=== PATIENT | female | born 2000 | race Caucasian/White ===

== ENCOUNTER 2022-06-14 14:52 | Emergency (ER) | payer MEDICAID ==
[2022-06-14] MEDS ORDERED: Sodium Chloride 0.9% 1,000 ML IV ONE (17:01)
[2022-06-14] MEDS ORDERED: Ondansetron 4 MG/2 ML SDV IVPUSH ONE (17:04)
[2022-06-14 17:50] LABS: CARBON DIOXIDE,CO2 23.8 mmol/L (21.0-32.0); POTASSIUM,K 3.4 mmol/L (3.5-5.1)
[2022-06-14] MEDS ORDERED: Amoxicillin/Clavulanate K 875-125 MG Tab PO ONE (18:49)
== END 2022-06-14 19:16 | disposition home or self-care (01) ==
LOC: MW.ED 14:52
DX: O21.9 Vomiting of pregnancy, unspecified (principal); O23.41 Unspecified infection of urinary tract in pregnancy, first trimester; Z3A.00 Weeks of gestation of pregnancy not specified; Z91.018 Allergy to other foods; Z79.899 Other long term (current) drug therapy
CPT/HCPCS: 36415; 80053; 81001; 85025; 96361; 96374; 99284; A9270; J2405; J7030

== ENCOUNTER 2022-12-26 00:23 | Inpatient (IN) | payer MEDICAID ==
[2022-12-26] MEDS ORDERED: Terbutaline 1 MG/ML SDV SUBCUT PRN (00:24)
[2022-12-26] MEDS ORDERED: Sodium Chloride 0.9% 20 ML SDV IV PRN (00:29)
[2022-12-26] MEDS ORDERED: Misoprostol 200 MCG Tab PO PRN (00:29)
[2022-12-26] MEDS ORDERED: Sodium Chloride 0.9% 10 ML Syringe FLUSH PRN (00:29)
[2022-12-26] MEDS ORDERED: Lidocaine 1% 50 ML MDV INJECT PRN (00:29)
[2022-12-26] MEDS ORDERED: Tranexamic Acid 1,000 MG in Sodium Chloride 0.9% 100 ML IV PRN (00:29)
[2022-12-26] MEDS ORDERED: Methylergonovine 0.2 MG/1 ML Amp IM PRN (00:29)
[2022-12-26] MEDS ORDERED: Water For Irrigation,Sterile 1,000 ML Container IRR PRN (00:29)
[2022-12-26] MEDS ORDERED: Carboprost Tromethamine 250 MCG/1 mL Vial IM PRN (00:29)
[2022-12-26] MEDS ORDERED: Sodium Chloride 0.9% 2.5 ML Syringe FLUSH PRN (00:29)
[2022-12-26] MEDS ORDERED: Oxytocin/0.9 % Sodium Chloride 30 UNIT/500 ML BAG IV SCH ×2 (00:30)
[2022-12-26] MEDS ORDERED: Misoprostol 25 MCG (1/4 of 100 MCG) Tab VAG PRN ×2 (01:00→05:00)
[2022-12-26] MEDS ORDERED: Misoprostol 25 MCG (1/4 of 100 MCG) Tab PO PRN ×2 (01:00→05:00)
[2022-12-26 01:21] LABS: HEMATOCRIT 31.7 % (36.0-46.0); HEMOGLOBIN 10.3 g/dL (12.0-16.0); MEAN CORPUSCULAR HGB CONC 32.5 g/dL (31.0-37.0); MEAN CORPUSCULAR VOLUME 83.2 fL (80.0-98.0); PLATELET COUNT,PLT 251 K/uL (150-400); RED BLOOD CELL COUNT 3.81 M/uL (4.30-5.90); WHITE BLOOD CELL COUNT,WBC 12.87 K/uL (4.0-11.0)
[2022-12-26] MEDS: Lactated Ringers 1,000 ML IV SCH ×3 (11:49→17:59)
[2022-12-26] MEDS: Nalbuphine HCl 10 MG/ 1ML Amp IVPUSH PRN ×3 (13:48→16:20)
[2022-12-26] MEDS: Ondansetron 4 MG/2 ML SDV IVPUSH PRN ×2 (13:48→19:14)
[2022-12-26] MEDS ORDERED: Phenylephrine HCl 0.5 MG/5 ML AMP IVPUSH PRN (17:39)
[2022-12-26] MEDS ORDERED: ePHEDrine 50 MG/ML SDV IVPUSH PRN ×2 (17:39)
[2022-12-26] MEDS ORDERED: Ropivacaine HCl/PF 400 MG in Premix Bag 1 BAG EPIDUR SCH (17:45)
[2022-12-26] MEDS ORDERED: Dexmedetomidine 200 MCG/2 ML SDV ONE (17:51)
[2022-12-26] MEDS ORDERED: oxyCODONE 5 MG Tab PO PRN (21:24)
[2022-12-26] MEDS ORDERED: Docusate Sodium 100 MG Cap PO PRN (21:24)
[2022-12-26] MEDS ORDERED: Lanolin 100% Cream 7 GM Tube TOP PRN (21:24)
[2022-12-26] MEDS ORDERED: Ibuprofen 400 MG Tab PO PRN (21:24)
[2022-12-26] MEDS ORDERED: Acetaminophen 500 MG Tab PO PRN (21:24)
[2022-12-26] MEDS ORDERED: Benzocaine/Menthol 20%-0.5% Spray 78 GM Cannister TOP PRN (21:24)
[2022-12-26] MEDS ORDERED: Bisacodyl 10 MG Supp RECTAL PRN (21:24)
[2022-12-26] MEDS ORDERED: Witch Hazel Medicated Pads 40/Jar TOP PRN (21:24)
[2022-12-26] MEDS: Acetaminophen 500 MG Tab PO PRN (23:05)
[2022-12-26] MEDS: Ibuprofen 800 MG Tab PO PRN (23:06)
[2022-12-27] MEDS: Acetaminophen 500 MG Tab PO PRN ×2 (04:35→11:51)
[2022-12-27 06:09] LABS: HEMATOCRIT 25.6 % (36.0-46.0)
[2022-12-27] MEDS: Ibuprofen 800 MG Tab PO PRN (22:20)
[2022-12-28] MEDS: Ibuprofen 800 MG Tab PO PRN (08:13)
== END 2022-12-28 12:28 | disposition home or self-care (01) | DRG 807 ==
LOC: MW.OBCHECK 00:23 → MW.OB 00:24 → OBSVTOIN 21:24 → MW.OB 12-27 01:37
PROVIDERS: ADMIT Obstetrics & Gynecology Obstetrics; ATTEND Obstetrics & Gynecology
PROC: 10E0XZZ Delivery of Products of Conception, External Approach (ICD-10-PCS; principal; 2022-12-27)
PROC: 10907ZC Drainage of Amniotic Fluid, Therapeutic from Products of Conception, Via Natural or Artificial Opening (ICD-10-PCS; 2022-12-27)
PROC: 3E0R3BZ Introduction of Anesthetic Agent into Spinal Canal, Percutaneous Approach (ICD-10-PCS; 2022-12-27)
PROC: 00HU33Z Insertion of Infusion Device into Spinal Canal, Percutaneous Approach (ICD-10-PCS; 2022-12-27)
PROC: 3E033VJ Introduction of Other Hormone into Peripheral Vein, Percutaneous Approach (ICD-10-PCS; 2022-12-27)
DX: O48.0 Post-term pregnancy (principal); Z37.0 Single live birth; Z3A.40 40 weeks gestation of pregnancy; Z91.030 Bee allergy status; Z91.018 Allergy to other foods
CPT/HCPCS: 36415; 51702; 59025; 59409; 82947; 85014; 85018; 85027; 86592; 86850; 86900; 86901; A9270-GY; J2300; J2405; J2590; J3490; J7120

== ENCOUNTER 2023-12-24 19:47 | Emergency (ER) | payer SELFPAY ==
[2023-12-24 20:16] LABS: APPEARANCE,URINE CLEAR; BILIRUBIN,URINE NEGATIVE (NEGATIVE); COLOR,URINE YELLOW; GLUCOSE,URINE NEGATIVE (NEGATIVE); KETONES,URINE NEGATIVE (NEGATIVE); LEUKOCYTE ESTERASE,URINE NEGATIVE (NEGATIVE); NITRITE,URINE NEGATIVE (NEGATIVE); OCCULT BLOOD,URINE NEGATIVE (NEGATIVE); PROTEIN,URINE NEGATIVE (NEGATIVE); UROBILINOGEN,URINE 0.2 EU/dL (<2.0)
[2023-12-24] MEDS: Sodium Chloride 0.9% 1,000 ML IV STA (20:18)
[2023-12-24 20:20] LABS: BASOPHILS ABSOLUTE AUTO 0.04 K/uL (0.00-0.20); BASOPHILS PERCENT AUTO 0.4 % (0.0-1.0); EOSINOPHILS ABSOLUTE AUTO 0.09 K/uL (0.00-0.45); EOSINOPHILS PERCENT AUTO 0.8 % (0.0-6.0); HEMATOCRIT 36.7 % (37.0-47.0); HEMOGLOBIN 12.1 g/dL (12.0-16.0); IMMATURE GRAN ABSOLUTE AUTO 0.03 K/uL (0.00-0.05); IMMATURE GRAN PERCENT AUTO 0.3 % (0.0-0.4); LYMPHOCYTES ABSOLUTE AUTO 2.86 K/uL (1.00-4.80); LYMPHOCYTES PERCENT AUTO 25.8 % (24.0-44.0); MEAN CORPUSCULAR HEMOGLOBIN 28.1 pg (28.0-32.0); MEAN CORPUSCULAR VOLUME 85.2 fL (83.0-99.0); MEAN PLATELET VOLUME 10.2 fL (9.4-12.3); MONOCYTES ABSOLUTE AUTO 0.61 K/uL (0.00-0.80); MONOCYTES PERCENT AUTO 5.5 % (0.0-8.0); NEUTROPHILS ABSOLUTE AUTO 7.47 K/uL (1.80-7.70); NEUTROPHILS PERCENT AUTO 67.2 % (41.0-71.0); PLATELET COUNT,PLT 255 K/uL (150-400); RED BLOOD CELL COUNT 4.31 M/uL (4.10-5.30)
[2023-12-24 20:45] LABS: A/G RATIO 0.8 (0.9-1.6); ALBUMIN 3.5 g/dL (3.4-5.0); BILIRUBIN TOTAL 0.1 mg/dL (0.2-1.0); CREATININE 0.6 mg/dL (0.6-1.0); EST CRCL DRUG DOSING (CG) 122.69 mL/min; POTASSIUM,K 3.4 mmol/L (3.5-5.1); PROTEIN TOTAL,TP 7.9 g/dL (6.4-8.2)
[2023-12-24] MEDS: Ondansetron 4 MG Tab.DIS PO STA (21:54)
== END 2023-12-24 21:57 | disposition home or self-care (01) ==
LOC: MW.ED 19:47
DX: O99.891 Other specified diseases and conditions complicating pregnancy (principal); R10.30 Lower abdominal pain, unspecified; Z3A.12 12 weeks gestation of pregnancy; Z75.8 Other problems related to medical facilities and other health care
CPT/HCPCS: 36415; 76817; 80053; 81003; 81025; 84702; 85025; 96360; 99284; A9270; J7030

== ENCOUNTER 2024-07-10 | Inpatient (IN) | payer MEDICAID ==
[2024-07-10] MEDS ORDERED: Ondansetron 4 MG/2 ML SDV IVPUSH PRN (00:11)
[2024-07-10] MEDS ORDERED: Sodium Chloride 0.9% 2.5 ML Syringe FLUSH PRN (00:11)
[2024-07-10] MEDS ORDERED: Methylergonovine 0.2 MG/1 ML Amp IM PRN (00:11)
[2024-07-10] MEDS ORDERED: Sodium Chloride 0.9% 20 ML SDV IV PRN (00:11)
[2024-07-10] MEDS ORDERED: Carboprost Tromethamine 250 MCG/1 mL Vial IM PRN (00:11)
[2024-07-10] MEDS ORDERED: Lidocaine 1% 50 ML MDV INJECT PRN (00:11)
[2024-07-10] MEDS ORDERED: Butorphanol 2 MG/ML SDV IVPUSH PRN (00:11)
[2024-07-10] MEDS ORDERED: Terbutaline 1 MG/ML SDV SUBCUT PRN (00:11)
[2024-07-10] MEDS ORDERED: Sodium Chloride 0.9% 10 ML Syringe FLUSH PRN (00:11)
[2024-07-10] MEDS ORDERED: Tranexamic Acid in NACL,ISO-OS 1,000 MG in Premix Bag 1 BAG IV PRN (00:11)
[2024-07-10] MEDS ORDERED: Misoprostol 100 MCG Tab RECTAL PRN (00:11)
[2024-07-10] MEDS ORDERED: Misoprostol 200 MCG Tab PO PRN (00:11)
[2024-07-10] MEDS ORDERED: Oxytocin/0.9 % Sodium Chloride 30 UNIT/500 ML BAG IV SCH (00:15)
[2024-07-10 01:08] LABS: HEMATOCRIT 29.5 % (37.0-47.0); HEMOGLOBIN 9.5 g/dL (12.0-16.0); MEAN CORPUSCULAR HGB CONC 32.2 g/dL (32.0-36.0); MEAN CORPUSCULAR VOLUME 77.6 fL (83.0-99.0); MEAN PLATELET VOLUME 11.1 fL (9.4-12.3); PLATELET COUNT,PLT 226 K/uL (150-400)
[2024-07-10] MEDS: Misoprostol 25 MCG (1/4 of 100 MCG) Tab VAG PRN ×2 (01:21→12:07)
[2024-07-10] MEDS: Ampicillin 2 GM in Sodium Chloride 0.9% 100 ML IV ONE (01:22)
[2024-07-10] MEDS: Misoprostol 25 MCG (1/4 of 100 MCG) Tab PO ONE (01:30)
[2024-07-10] MEDS: Ampicillin 1 GM in Sodium Chloride 0.9% 50 ML IV SCH ×2 (05:08→08:53)
[2024-07-10] MEDS: Oxytocin/0.9 % Sodium Chloride 30 UNIT/500 ML BAG IV SCH (08:06)
[2024-07-10 09:49] LABS: AMPHETAMINES SCREEN, URINE NEGATIVE (CUTOFF=500); BARBITURATE SCREEN,URINE NEGATIVE (CUTOFF=200); BENZODIAZEPINES SCREEN,URINE NEGATIVE (CUTOFF=150); BUPRENORPHINE SCREEN,URINE NEGATIVE (CUTOFF=10); METHADONE SCREEN, URINE NEGATIVE (CUTOFF=200); METHAMPHETAMINES SCREEN, URINE NEGATIVE (CUTOFF=500); OXYCODONE SCREEN,URINE NEGATIVE (CUT0FF=100); PCP SCREEN,URINE NEGATIVE (CUTOFF=25); THC SCREEN,URINE 20 NG/ML NEGATIVE (CUTOFF=50)
[2024-07-10] MEDS ORDERED: ePHEDrine 50 MG/ML SDV IM PRN (14:27)
[2024-07-10] MEDS ORDERED: Bupivacaine 0.5% 10 ML SDV INJECT ONE (14:27)
[2024-07-10] MEDS ORDERED: Phenylephrine HCl In 0.9% NaCl 1 MG/10 ML Syringe IVPUSH PRN (14:27)
[2024-07-10] MEDS ORDERED: ePHEDrine 50 MG/ML SDV IVPUSH PRN (14:27)
[2024-07-10] MEDS ORDERED: dexmedeTOMIDine HCl 200 MCG/2 ML SDV EPIDUR SCH (14:30)
[2024-07-10] MEDS: Lactated Ringers 1,000 ML IV SCH (15:39)
[2024-07-10] MEDS ORDERED: Bupivacaine 0.5% 10 ML SDV ONE (17:09)
[2024-07-10] MEDS: Ropivacaine HCl/PF 400 MG in Premix Bag 1 BAG EPIDUR SCH (17:31)
[2024-07-10] MEDS: Water For Irrigation,Sterile 1,000 ML Container IRR PRN (18:00)
[2024-07-10] MEDS ORDERED: Acetaminophen 500 MG Tab PO PRN (18:23)
[2024-07-10] MEDS ORDERED: diphenhydrAMINE 50 MG Cap PO PRN (18:23)
[2024-07-10] MEDS ORDERED: Oxytocin 10 Units/1 ML SDV IM PRN (18:23)
[2024-07-10] MEDS ORDERED: Lanolin 100% Cream 7 GM Tube TOP PRN (18:23)
[2024-07-10] MEDS ORDERED: Simethicone 80 MG Tab.Chew PO PRN (18:23)
[2024-07-10 18:54] LABS: PH,UMBILICAL ARTERIAL 7.19 (7.18-7.38); PH,UMBILICAL VENOUS 7.333 (7.25-7.45)
[2024-07-10] MEDS: Witch Hazel Medicated Pads 40/Jar TOP PRN (21:02)
[2024-07-10] MEDS: Ibuprofen 800 MG Tab PO PRN (21:03)
[2024-07-10] MEDS: Benzocaine/Menthol 20%-0.5% Spray 78 GM Cannister TOP PRN (22:49)
[2024-07-11 05:44] LABS: BASOPHILS ABSOLUTE AUTO 0.03 K/uL (0.00-0.20); BASOPHILS PERCENT AUTO 0.2 % (0.0-1.0); EOSINOPHILS ABSOLUTE AUTO 0.07 K/uL (0.00-0.45); EOSINOPHILS PERCENT AUTO 0.5 % (0.0-6.0); HEMATOCRIT 26.8 % (37.0-47.0); HEMOGLOBIN 8.6 g/dL (12.0-16.0); IMMATURE GRAN ABSOLUTE AUTO 0.04 K/uL (0.00-0.05); IMMATURE GRAN PERCENT AUTO 0.3 % (0.0-0.4); LYMPHOCYTES ABSOLUTE AUTO 2.51 K/uL (1.00-4.80); LYMPHOCYTES PERCENT AUTO 18.1 % (24.0-44.0); MEAN CORPUSCULAR HEMOGLOBIN 24.9 pg (28.0-32.0); MEAN CORPUSCULAR HGB CONC 32.1 g/dL (32.0-36.0); MEAN CORPUSCULAR VOLUME 77.7 fL (83.0-99.0); MEAN PLATELET VOLUME 11.1 fL (9.4-12.3); MONOCYTES ABSOLUTE AUTO 0.96 K/uL (0.00-0.80); MONOCYTES PERCENT AUTO 6.9 % (0.0-8.0); NEUTROPHILS ABSOLUTE AUTO 10.29 K/uL (1.80-7.70); PLATELET COUNT,PLT 191 K/uL (150-400); RED BLOOD CELL COUNT 3.45 M/uL (4.10-5.30)
[2024-07-11] MEDS: Sodium Ferric Gluconate Cmplex 125 MG in Sodium Chloride 0.9% 100 ML IV STA (21:02)
[2024-07-11] MEDS: Measles, Mumps & Rubella Vaccine 0.5 ML SDV SUBCUT ONE (22:09)
[2024-07-11] MEDS: Docusate Sodium 100 MG Cap PO PRN (22:16)
== END 2024-07-11 23:20 | disposition home or self-care (01) | DRG 807 ==
LOC: MW.OBCHECK → MW.OB 00:01 → OBSVTOIN 18:07 → MW.OB 07-11 00:51
PROVIDERS: ADMIT Obstetrics & Gynecology; ATTEND Obstetrics & Gynecology
PROC: 10E0XZZ Delivery of Products of Conception, External Approach (ICD-10-PCS; principal; 2024-07-10)
PROC: 3E033VJ Introduction of Other Hormone into Peripheral Vein, Percutaneous Approach (ICD-10-PCS; 2024-07-10)
PROC: 3E0R3BZ Introduction of Anesthetic Agent into Spinal Canal, Percutaneous Approach (ICD-10-PCS; 2024-07-10)
PROC: 00HU33Z Insertion of Infusion Device into Spinal Canal, Percutaneous Approach (ICD-10-PCS; 2024-07-10)
DX: O99.824 Streptococcus B carrier state complicating childbirth (principal); Z37.0 Single live birth; R82.71 Bacteriuria; O99.214 Obesity complicating childbirth; O99.02 Anemia complicating childbirth; Z86.32 Personal history of gestational diabetes; Z3A.39 39 weeks gestation of pregnancy
CPT/HCPCS: 01967; 36415; 59025; 59409; 76805; 76805-26; 80305-QW; 82803; 85025; 85027; 86592; 86850; 86900; 86901; 90471; 90707; A9270-GY; J0290; J0665; J2590; J2795; J2916; J3490; J7120

== ENCOUNTER 2025-03-06 15:59 | Emergency (ER) | payer MEDICAID ==
[2025-03-06 17:00] LABS: BASOPHILS ABSOLUTE AUTO 0.03 K/uL (0.00-0.20); BASOPHILS PERCENT AUTO 0.4 % (0.0-1.0); EOSINOPHILS ABSOLUTE AUTO 0.12 K/uL (0.00-0.45); EOSINOPHILS PERCENT AUTO 1.4 % (0.0-6.0); IMMATURE GRAN ABSOLUTE AUTO 0.03 K/uL (0.00-0.05); IMMATURE GRAN PERCENT AUTO 0.4 % (0.0-0.4); LYMPHOCYTES ABSOLUTE AUTO 2.34 K/uL (1.00-4.80); LYMPHOCYTES PERCENT AUTO 28.0 % (24.0-44.0); MEAN PLATELET VOLUME 9.9 fL (9.4-12.3); MONOCYTES ABSOLUTE AUTO 0.38 K/uL (0.00-0.80); MONOCYTES PERCENT AUTO 4.5 % (0.0-8.0); NEUTROPHILS ABSOLUTE AUTO 5.47 K/uL (1.80-7.70); NEUTROPHILS PERCENT AUTO 65.3 % (41.0-71.0); NRBC ABSOLUTE 0.00 K/uL (0.00-0.02); NRBC PERCENT 0.0 /100WBC (0.0-0.2); PLATELET COUNT,PLT 308 K/uL (150-400); RED BLOOD CELL COUNT 4.62 M/uL (4.10-5.30); WHITE BLOOD CELL COUNT,WBC 8.37 K/uL (3.9-11.3)
[2025-03-06 17:26] LABS: A/G RATIO 0.9 (0.9-1.6); ALANINE AMINOTRANSFERASE,ALT 35.0 IU/L (14-63); ASPARTATE AMNIOTRANSFERASE,AST 22.0 IU/L (15-37); BILIRUBIN TOTAL 0.3 mg/dL (0.2-1.0); BLOOD UREA NITROGEN,BUN 15.0 mg/dL (7.0-18.0); CARBON DIOXIDE,CO2 25.6 mmol/L (21.0-32.0); CHLORIDE,CL 100.0 mmol/L (98-107); CREATININE 0.8 mg/dL (0.6-1.0); EST CRCL DRUG DOSING (CG) 87.24 mL/min; GLUCOSE RANDOM 125.0 mg/dL (74-106); POTASSIUM,K 3.5 mmol/L (3.5-5.1); PROTEIN TOTAL,TP 8.2 g/dL (6.4-8.2); SODIUM,NA 139.0 mmol/L (136-145)
[2025-03-06 17:27] LABS: ESTIMATED GFR 107.0 mL/min (>60)
[2025-03-06 18:21] LABS: APPEARANCE,URINE CLEAR; GLUCOSE,URINE NEGATIVE (NEGATIVE); OCCULT BLOOD,URINE NEGATIVE (NEGATIVE)
== END 2025-03-06 18:52 | disposition home or self-care (01) ==
LOC: MW.ED 15:59
DX: R42 Dizziness and giddiness (principal); Z75.3 Unavailability and inaccessibility of health-care facilities; Z91.013 Allergy to seafood; Z91.018 Allergy to other foods; Z79.899 Other long term (current) drug therapy
CPT/HCPCS: 36415; 80053; 81003; 83735; 85025; 96360; 99284; J7030; 99283